=== PATIENT | male | born 1945 | race Caucasian/White ===

== ENCOUNTER 2023-03-13 12:15 | Inpatient (IN) | payer MEDICARE, OTHER ==
[2023-03-13] MEDS ORDERED: Polyethylene Glycol 3350 Powder 17 GM Packet PO PRN (12:32)
[2023-03-13] MEDS ORDERED: Sodium Chloride 0.9% 10 ML Syringe FLUSH PRN (12:32)
[2023-03-13] MEDS ORDERED: Acetaminophen 325 MG Tab PO PRN (12:32)
[2023-03-13] MEDS ORDERED: Albuterol 0.083% 2.5 MG/3 ML Neb Soln NEB PRN (12:32)
[2023-03-13] MEDS ORDERED: Benzonatate 100 MG Cap PO PRN (12:32)
[2023-03-13 13:22] LABS: BLOOD UREA NITROGEN,BUN 14 mg/dL (7-18); BUN/CREATININE RATIO 17.5 (9-20); CALCIUM 8.3 mg/dL (8.6-10.2); CARBON DIOXIDE,CO2 25 mmol/L (21-32); CHLORIDE,CL 96 mmol/L (100-110); CREATININE 0.8 mg/dL (0.70-1.30); ESTIMATED GFR 92 mL/min (>60); GLUCOSE RANDOM 114 mg/dL (80-116); POTASSIUM,K 3.9 mmol/L (3.5-5.3); SODIUM,NA 130 mmol/L (135-145)
[2023-03-13 13:26] LABS: BASOPHILS ABSOLUTE AUTO 0.1 x10-3/uL (0.0-0.3); BASOPHILS PERCENT AUTO 0.7 % (0.3-3.8); EOSINOPHILS ABSOLUTE AUTO 0.1 x10-3/uL (0.0-0.6); EOSINOPHILS PERCENT AUTO 0.8 % (0.1-6.8); HEMATOCRIT 37.5 % (38.3-50.1); HEMOGLOBIN 13.1 g/dL (12.9-17.7); LYMPHOCYTES ABSOLUTE AUTO 0.7 x10-3/uL (0.5-4.5); MEAN CORPUSCULAR HEMOGLOBIN 31.5 pg (27.0-33.3); MEAN PLATELET VOLUME 6.5 fL (6.7-11.0); MONOCYTES ABSOLUTE AUTO 0.8 x10-3/uL (0.0-1.2); MONOCYTES PERCENT AUTO 7.7 % (5.5-15.2); NEUTROPHILS ABSOLUTE AUTO 9.3 x10-3/uL (1.7-6.9); NEUTROPHILS PERCENT AUTO 84.8 % (40.3-71.8); PLATELET COUNT,PLT 374 x10(3)uL (117-477); RED BLOOD CELL COUNT 4.17 x10(6)uL (3.90-5.90); RED CELL DISTRIBUTION WIDTH 13.1 % (12.4-15.0); WHITE BLOOD CELL COUNT,WBC 10.9 x10-3/uL (3.2-10.1)
[2023-03-13 13:28] LABS: A/G RATIO 0.5; ALANINE AMINOTRANSFERASE,ALT 39 U/L (12-36); ALBUMIN 2.1 g/dL (3.2-4.6); ALKALINE PHOSPHATASE 98 IU/L (56-112); ASPARTATE AMNIOTRANSFERASE,AST 30 IU/L (5-25); BILIRUBIN TOTAL 0.5 mg/dL (0.1-1.3); PROTEIN TOTAL,TP 6.7 g/dL (6.0-8.0)
[2023-03-13] MEDS ORDERED: Enoxaparin 40 MG/0.4 ML Syringe SUBCUT SCH (13:30)
[2023-03-13] MEDS ORDERED: cefTRIAXone 1 GM in Sodium Chloride 0.9% 50 ML IV SCH (13:30)
[2023-03-13] MEDS ORDERED: cefTRIAXone 1 GM Vial IV SCH (14:00)
[2023-03-13] MEDS ORDERED: Ibuprofen 200 MG Tab PO PRN (14:05)
[2023-03-13] MEDS: Nicotine 21 MG/24 Hr Patch TRDERM SCH (14:37)
[2023-03-13] MEDS: Doxycycline 100 MG Tab PO SCH ×2 (14:37→20:12)
[2023-03-13] MEDS: predniSONE 20 MG Tab PO SCH (14:37)
[2023-03-13] MEDS ORDERED: Nicotine Polacrilex 2 MG Gum CHEW PRN (14:56)
[2023-03-13] MEDS ORDERED: Iopamidol 755 Mg/ML 100 ML Bottle IV ONE (15:40)
[2023-03-13 16:11] LABS: INFLUENZA A NAA NEGATIVE (NEGATIVE); INFLUENZA B NAA NEGATIVE (NEGATIVE)
[2023-03-13 16:18] LABS: CORONAVIRUS COVID-19 NAA NEGATIVE (NEGATIVE)
[2023-03-13] MEDS ORDERED: Calcium Carbonate 500 MG Tablet PO SCH (18:00)
[2023-03-13] MEDS: carBAMazepine 200 MG Tab PO SCH (20:12)
[2023-03-13] MEDS: Formoterol/Mometasone 200-5 MCG 8.8 GM Inhaler IH SCH (20:12)
[2023-03-13] MEDS: Albuterol 90 MCG/6.7 GM Inhaler INH SCH (20:13)
[2023-03-13] MEDS ORDERED: Simvastatin 40 MG Tab PO SCH (21:00)
[2023-03-13] MEDS ORDERED: ClonazePAM 0.5 MG Tab PO SCH (21:00)
[2023-03-14] MEDS: carBAMazepine 200 MG Tab PO SCH (08:12)
[2023-03-14] MEDS: predniSONE 20 MG Tab PO SCH (08:12)
[2023-03-14] MEDS: Formoterol/Mometasone 200-5 MCG 8.8 GM Inhaler IH SCH (08:13)
[2023-03-14] MEDS: Albuterol 90 MCG/6.7 GM Inhaler INH SCH (08:13)
[2023-03-14] MEDS: Doxycycline 100 MG Tab PO SCH (08:13)
[2023-03-14] MEDS: Nicotine 21 MG/24 Hr Patch TRDERM SCH (08:14)
[2023-03-14] MEDS ORDERED: Cholecalciferol (Vitamin D3) 25 MCG Tab PO SCH (09:00)
[2023-03-14] MEDS ORDERED: NICOTINE PATCH TRDERM SCH (09:00)
[2023-03-14] MEDS ORDERED: Tiotropium Bromide 4 GM Inhalation Spray (2.5mcg/1 dose; 10 doses) INH SCH (09:00)
[2023-03-14] MEDS ORDERED: Finasteride 5 MG Tab PO SCH (09:00)
[2023-03-14] MEDS ORDERED: Aspirin 81 MG Tab.EC PO SCH (09:00)
[2023-03-14 10:45] LABS: HEMATOCRIT 37.9 % (38.3-50.1); HEMOGLOBIN 13.1 g/dL (12.9-17.7); MEAN CORPUSCULAR HEMOGLOBIN 31.2 pg (27.0-33.3); MEAN CORPUSCULAR HGB CONC 34.7 g/dL (28.7-35.3); MEAN PLATELET VOLUME 6.3 fL (6.7-11.0); PLATELET COUNT,PLT 449 x10(3)uL (117-477); RED BLOOD CELL COUNT 4.22 x10(6)uL (3.90-5.90); RED CELL DISTRIBUTION WIDTH 13.2 % (12.4-15.0); WHITE BLOOD CELL COUNT,WBC 12.7 x10-3/uL (3.2-10.1)
[2023-03-14 10:47] LABS: BLOOD UREA NITROGEN,BUN 13 mg/dL (7-18); BUN/CREATININE RATIO 18.6 (9-20); CALCIUM 8.8 mg/dL (8.6-10.2); CARBON DIOXIDE,CO2 28 mmol/L (21-32); CHLORIDE,CL 97 mmol/L (100-110); CREATININE 0.7 mg/dL (0.70-1.30); EST CRCL DRUG DOSING (CG) 86.86 mL/min; ESTIMATED GFR 95 mL/min (>60); GLUCOSE RANDOM 132 mg/dL (80-116); POTASSIUM,K 3.9 mmol/L (3.5-5.3); SODIUM,NA 131 mmol/L (135-145)
[2023-03-14 11:06] LABS: LYMPHOCYTES PERCENT MAN 3 % (13-37); MONOCYTES PERCENT MAN 3 % (4-12); SEG NEUTROPHILS PERCENT MAN 94 % (46-82)
[2023-03-14] MEDS ORDERED: cefTRIAXone 1 GM Vial IV SCH (12:00)
== END 2023-03-14 13:11 | disposition home or self-care (01) | DRG 193 ==
LOC: FB.MS 12:30
PROVIDERS: ADMIT Family Medicine; ATTEND Family Medicine
DX: J18.9 Pneumonia, unspecified organism (principal); J96.21 Acute and chronic respiratory failure with hypoxia; J44.1 Chronic obstructive pulmonary disease with (acute) exacerbation; D84.821 Immunodeficiency due to drugs; E87.1 Hypo-osmolality and hyponatremia; F17.210 Nicotine dependence, cigarettes, uncomplicated; T50.905A Adverse effect of unspecified drugs, medicaments and biological substances, initial encounter; M06.9 Rheumatoid arthritis, unspecified; Z20.822 Contact with and (suspected) exposure to COVID-19; Z79.82 Long term (current) use of aspirin; Z79.899 Other long term (current) drug therapy
CPT/HCPCS: 0240U; 36415; 71275; 80048; 80053; 84484; 85025; 85379; 87070; 87205; 93005; 94150; 99222; 99238; A9270-GY; J0696; J1650; J3490; J7512; Q9967